=== PATIENT | male | born 1935 | race Caucasian/White ===

== ENCOUNTER 2021-11-24 03:23 | Emergency (ER) | payer OTHER ==
[~2021-11-24 03:23] MED LIST: DEXILANT60 MG PO; FLOMAX0.4 MG PO; LIPITOR TAB 2020 MG PO; NORVASC 5 MG TAB5 MG PO; PLAVIX 75 MG TA75 MG PO; PRINIVIL10 MG PO; TENORMIN 50 MG50 MG PO; ZOFRAN4 MG PO; ZYLOPRIM 300 M300 MG PO
[2021-11-24 04:09] LABS: RED BLOOD COUNT 5.32 M/UL (4.20-5.50)
[2021-11-24 04:30] LABS: BUN/CREATININE RATIO 16 (0-10)
[2021-11-24] MEDS ORDERED: ZOFRAN4 MG PO (05:44)
[2021-11-24] MEDS ORDERED: BENZONATATE200 MG PO (05:44)
[2021-11-24] MEDS ORDERED: DOXYCYCLINE HY100 M2 PO (05:44)
== END 2021-11-24 06:00 | disposition home or self-care (01) ==
LOC: ER1 03:23
PROVIDERS: Physician Assistant Medical
DX: R11.2 Nausea with vomiting, unspecified (principal); R05.9 Cough, unspecified; I11.9 Hypertensive heart disease without heart failure; I48.91 Unspecified atrial fibrillation; Z20.822 Contact with and (suspected) exposure to COVID-19; Z95.5 Presence of coronary angioplasty implant and graft; Z79.01 Long term (current) use of anticoagulants; E11.9 Type 2 diabetes mellitus without complications
CPT/HCPCS: 71045; 80053; 82550; 82553; 83605; 83690; 83874; 83880; 84484; 85025; 93005; 96374; 96375; 99284; J2405; J2930; U0002

== ENCOUNTER → 2021-12-14 | Outpatient (CLI) | payer OTHER ==
[~2021-12-14] MED LIST changes: +BENZONATATE200 MG PO; +DOXYCYCLINE HY100 M2 PO
== END ==
LOC: KOH-I 16:34
DX: M54.2 Cervicalgia (principal); M47.812 Spondylosis without myelopathy or radiculopathy, cervical region
CPT/HCPCS: 72040

== ENCOUNTER → 2021-12-28 | Outpatient (CLI) | payer OTHER | LOC: KOH-I 08:30 | DX: R53.1 Weakness (principal); M50.31 Other cervical disc degeneration, high cervical region | CPT/HCPCS: 72125 ==